=== PATIENT | male | born 1950 | race Caucasian/White ===

== ENCOUNTER 2018-01-30 14:06 | Emergency (ER) | payer OTHER ==
[~2018-01-30] VITALS: Ht 172.7 cm; Wt 90.7 kg
[~2018-01-30 14:06] MED LIST: AZIT500 PO; BENZ100A PO; COREG CR PO; GUAI600T33 PO; HYDACE5 PO; HYDR1TAB94 PO; MELA3 PO; Melatonin5 M1 PO; Norco 5-325 Ta1 EACH PO; ONDA4 PO; OXYACE5T PO; PSEU30 PO; TAMS.4ER PO; UBID100 PO
== END 2018-01-30 15:48 | disposition home or self-care (01) ==
LOC: ER 14:06
DX: S81.811A Laceration without foreign body, right lower leg, initial encounter (principal); W22.8XXA Striking against or struck by other objects, initial encounter; I10 Essential (primary) hypertension
CPT/HCPCS: 12002; 90471; 90714; 99282

== ENCOUNTER 2023-12-17 21:00 | Emergency (ER) | payer OTHER ==
[~2023-12-17] VITALS: Ht 172.7 cm; Wt 86.2 kg
[2023-12-18] MEDS ORDERED: RX PP HYDROcodone-APAP 1 Prepack/30MLBTL UD ONE (00:05)
[2023-12-18] MEDS ORDERED: Norco 5-325 Ta1 EACH PO (00:06)
[2023-12-18 00:29] VITALS: BP 1159/77
[2023-12-18] MEDS ORDERED: HYDR1TAB94 PO (00:34)
== END 2023-12-18 00:47 | disposition home or self-care (01) ==
LOC: ER 21:00
DX: S90.122A Contusion of left lesser toe(s) without damage to nail, initial encounter (principal); I10 Essential (primary) hypertension; W07.XXXA Fall from chair, initial encounter
CPT/HCPCS: 73620; 99283-25; A9270

== ENCOUNTER → 2024-09-06 | Outpatient (CLI) | payer OTHER ==
[2024-09-06 16:55] LABS: Bun/Creatinine Ratio 21.4 (12.0-20.0); Calcium, Blood 8.9 mg/dL (8.5-10.1); Creatinine, Blood 1.26 mg/dL (0.60-1.20); Potassium, Blood 4.7 mmol/L (3.5-5.5)
== END ==
LOC: LAB SHORT 16:28 → LAB 16:28
PROVIDERS: Family Medicine
DX: I10 Essential (primary) hypertension (principal)
CPT/HCPCS: 80048

== ENCOUNTER → 2024-10-06 | Outpatient (CLI) | payer OTHER ==
[2024-10-06 19:41] LABS: Bun/Creatinine Ratio 23.7 (12.0-20.0); Creatinine, Blood 1.31 mg/dL (0.60-1.20); Potassium, Blood 4.9 mmol/L (3.5-5.5)
== END | disposition home or self-care (01) ==
LOC: LAB 18:29 → LAB SHORT 18:29
PROVIDERS: Family Medicine
DX: I10 Essential (primary) hypertension (principal)
CPT/HCPCS: 80048